=== PATIENT | female | born 1960 | race Caucasian/White ===

== ENCOUNTER 2016-07-18 13:20 | Inpatient (IN) ==
[2016-07-18] MEDS ORDERED: ASPIRIN PO STA (13:59)
[2016-07-18 14:08] LABS: MANUAL DIFF NEEDED? NO
[2016-07-18 14:13] LABS: BASO% 0.4 % (0.0-0.8); EOS# 0.17 X1000 (0.0-0.7); HEMATOCRIT 37.7 % (37.0-47.0); HEMOGLOBIN 13.5 g/dL (12.0-16.0); LYMPH# 2.61 X1000 (1.2-3.4); LYMPH% 30.9 % (20.5-51.1); MCH 30.4 PG (27-31); MCHC 35.8 g/dL (33-37); MCV 84.9 FL (81-99); MONO# 0.74 X1000 (0.11-0.59); MONO% 8.8 % (1.7-9.3); MPV 10.1 FL (7.4-10.4); NEUT% 57.9 % (42.2-75.2); PLT 247 X1000 (130-400); RBC 4.44 XMIL (4.2-5.4)
[2016-07-18 14:20] LABS: INR 0.96; PTT 24.5 Seconds (22.0-36.0)
[2016-07-18 14:33] LABS: AGAP 16; ALKALINE PHOSPHATASE 68 U/L (32-104); BUN 12 mg/dL (8-22); CHLORIDE 91 mmol/L (98-107); CK PROFILE 74 U/L (24-173); COSMO 277; GOT 25 U/L (10-30); GPT 25 U/L (10-36); MAGNESIUM 1.4 mg/dL (1.5-2.7); POTASSIUM 3.8 mmol/L (3.5-5.1); SODIUM 132 mmol/L (136-145); TCO2 25 mmol/L (25-35); TOTAL BILIRUBIN 0.53 mg/dL (0.20-1.00); TOTAL PROTEIN 7.1 g/dL (6.3-8.3)
--- NOTE | 2016-07-18 14:55 | Diag Imaging Result Document ---
PROCEDURE NAME: CHEST-2 VIEWS - 07/18/2016 CHEST, 2 VIEWS: COMPARISON: 06/18/2015. FINDINGS: Stable mild cardiomegaly. Pulmonary vascularity is normal. No focal infiltrates, pneumothorax, or pleural effusion. IMPRESSION: Mild cardiomegaly. No change from prior.
[2016-07-18] MEDS ORDERED: MAG-OX PO ONE (15:06)
[2016-07-18] MEDS ORDERED: NITROGLYCERIN SL PRN ×2 (16:21→18:37)
[2016-07-18] MEDS ORDERED: ZOFRAN IV PRN ×2 (16:25→18:37)
[2016-07-18] MEDS ORDERED: MORPHINE IV PRN (16:25)
[2016-07-18] MEDS ORDERED: PERICOLACE PO PRN (18:35)
[2016-07-18] MEDS ORDERED: SALINE LOCK IV FLUID XX ONE (18:37)
--- NOTE | 2016-07-18 20:45 | HISTORY AND PHYSICAL ---
CHIEF COMPLAINT: Chest pain. HISTORY OF PRESENT ILLNESS: The patient is a 56-year-old white female, followed by Dr. Kevin who presents to the emergency room stating that this morning she was at her yarsanism service when she had some chest discomfort in the mid left chest that radiated down the left arm. She describes it as sharp shooting pain and lasted around 5 minutes and was quite intense at 1 point, not accompanied by shortness of breath nor diaphoresis. She said she had another episode of this about 3 weeks ago. She has had 4 stents in all with her 1st heart attack occurring in 2012 requiring 2 stents and then another one in 2013 required 2 more stents. She is followed by Dr. Joshua Self, her marketing technologist in [place]. MEDICATIONS PRIOR TO ADMISSION: Naprosyn 500 mg p.o. q.12 hours p.r.n. pain. Ecotrin 325 mg p.o. daily. Coreg 12.5 mg p.o. b.i.d. Hydrochlorothiazide 25 mg p.o. q.a.m. Zestril 20 mg p.o. b.i.d. Nifedipine ER 30 mg p.o. daily. Effient 10 mg p.o. daily. Pravachol 80 mg p.o. at bedtime. Daniela-Colace 1 p.o. daily. CoQ10 100 mg p.o. daily. ALLERGIES: Penicillin. PAST MEDICAL HISTORY: 1. Coronary artery disease with history of CO 2012 requiring 2 stents, and then in January 2014 she required 2 additional stents, and July 2013. She had her last stress testing per Dr. Self in 2013 by her report. 2. Hypertension. 3. Hypercholesterolemia. Patient is not aware of being a diabetic. 4. History of tracheotomy after apparent CO, significant enough to require tracheotomy. PAST SURGICAL HISTORY: Cholecystectomy about 16 years ago. FAMILY HISTORY: Notable for coronary artery disease in her father. SOCIAL HISTORY: The patient lives in [place]. Several family members were with her today. She has a long history of smoking, but quit in late 2011, having at least a 45 pack year history of smoking. She denies any alcohol use. She is not employed. In the past, she had worked at . REVIEW OF SYSTEMS: Negative except she has had a little swelling about her right ankle recently she thinks. PHYSICAL EXAMINATION: VITAL SIGNS: Temperature 98.4 degrees, pulse 70, respirations 18, blood pressure 138/84, O2 saturation on room air 96-100%. Weight 206, 5 feet 7 inches tall. GENERAL: Obese, white female. Denies any chest pain going on currently. SKIN: Warm and dry. No rashes. HEENT: Normocephalic, atraumatic. PERRL, EOMI. Sclerae clear. Oropharynx, no redness. Edentulous. NECK: No lymphadenopathy, thyromegaly, JVD, bruits. CARDIOVASCULAR: Regular rate and rhythm without definite murmur. LUNGS: Computed tomography angiography. BACK: Nontender. Chest wall nontender. ABDOMEN: Protuberant, soft. No mass or organomegaly can be appreciated. BREASTS/PELVIC/RECTAL: Deferred. EXTREMITIES: No calf tenderness, cords or edema. Peripheral pulses lower extremities 2+ over 4. NEUROLOGIC: Cranial nerves 2-12 are intact. Nonfocal. IMAGING: Chest x-ray shows mild cardiomegaly. Otherwise, negative. LABORATORY DATA/DIAGNOSTICS: Sodium 132, potassium 3.8, chloride 91, CO2 25, BUN 12, creatinine 0.6, glucose 333, calcium 9, magnesium 1.4, total bilirubin 0.53, AST 25, ALT 25, alkaline phosphatase 68, total CK 74, troponin less than 0.01, proBNP 52. Total protein 7.1, albumin 4. PT 10. INR 0.96. PTT 24.5, D-dimer less than 0.1. White count 8.45, hemoglobin 13.5, hematocrit 37.7, MCV 85, platelets 247,000, neutrophils 58, lymphocytes 31, monocytes 8.8. EKG NSR with nonspecific anterior ST changes which are minimal. Possible old inferior and anterior scar. ASSESSMENT: 1. Chest pain, atypical. 2. History of coronary artery disease. 3. Hypertension. 4. Hypercholesterolemia. 5. Pronounced hyperglycemia with no prior history of diabetes that she is aware. 6. Hypomagnesemia. PLAN: At this time we will admit the patient to a telemetry bed and monitor serial cardiac enzymes, troponin level. This will be an observation visit. We will give her sublingual nitroglycerin p.r.n., morphine as needed for pain. Continue her home medications and get Cardiology to see the patient in the morning. Replete magnesium and check hemoglobin A1c while monitoring Accu-Cheks. cc: Chandana Weaver MD
[2016-07-18] MEDS: PRAVACHOL PO SCH (22:08)
[2016-07-18] MEDS: COREG PO SCH (22:08)
[2016-07-18] MEDS: PRINIVIL PO SCH (22:08)
[2016-07-18] MEDS: TYLENOL PO PRN (22:09)
[2016-07-18] MEDS: HUMULIN R SUBQ SCH (23:11)
[2016-07-19 04:21] LABS: HEMOGLOBIN A1C 11.2 % (4.8-6.0)
[2016-07-19] MEDS: HUMULIN R SUBQ SCH ×4 (06:47→20:07)
[2016-07-19] MEDS: PRILOSEC PO SCH (06:48)
[2016-07-19] MEDS ORDERED: ASPIRIN EC PO SCH (09:00)
--- NOTE | 2016-07-19 09:44 | PROGRESS NOTE ---
DATE: 07/19/2016 Ms. Baldwin is a 56-year-old white female who was admitted with some atypical chest pain. Her physical exam is unremarkable at the present time. Troponin levels are negative. We will get a Cardiology consult for her. cc: MD Chandana Crump MD
--- NOTE | 2016-07-19 11:38 | CONSULTATION ---
DATE OF CONSULTATION: 07/19/2016 REASON FOR CONSULT: Cardiology consulted for chest pain, angina. HISTORY OF PRESENT ILLNESS: Ms. Sharonda Baldwin is a 56-year-old lady with known history of myocardial infarction, cardiomyopathy, multiple stent placements in the past. Comes with complaints of having chest pains for the last 2 weeks. She describes her symptoms as sharp in character and pressure-like sensations which last for about 10-15 minutes on a daily basis. The symptoms got worse and she had radiation to the left arm. Describes this pain as sharp in character, associated with some shortness of breath but no significant diaphoresis. There are no palpitations. There is no dizziness or syncope. She was ruled out for myocardial infarction by cardiac enzymes. REVIEW OF SYSTEMS: GI: There is no history of nausea, vomiting, diarrhea. There is no history of hematemesis or melena. Central nervous system: No focal weakness to suggest a CVA or TIA. Genitourinary: There is no dysuria or hematuria. Respiratory: There is no history of cough, expectoration, hemoptysis. There is no history of fevers or chills. PAST MEDICAL HISTORY: 1. Myocardial infarction and ventricular fibrillation arrest in 2012. 2. Left heart catheterization 09/12/2012. Aspiration thrombectomy and overlapping bare metal stent to the proximal and mid left anterior descending artery. She had last cardiac catheterization 08/02/2013, had a drug-eluting stent placement to the proximal left anterior descending artery, requiring a PTCA of the diagonal with balloon angioplasty to maintain patency of the diagonal artery. Successful DC drug-eluting stent to the distal LAD. At that time had normal left ventricular systolic function. 3. Cardiomyopathy. 4. Hypertension. 5. Diastolic dysfunction. 6. Left ventricular hypertrophy. 7. Hyperlipidemia . 8. Diabetes. 9. Anemia. CURRENT MEDICATIONS: Aspirin, Coreg 12.5 b.i.d., coenzyme Q, hydrochlorothiazide 25, insulin, lisinopril 20 b.i.d., nifedipine therapy 30 mg daily, nitroglycerin, Effient 10, pravastatin 80. ALLERGIES: She is allergic to penicillin. SOCIAL HISTORY: She does not smoke. There is no history of alcohol abuse. PHYSICAL EXAMINATION: Vital Signs: Blood pressure 118/71. Cardiovascular System: Normal jugular venous pressure. There no thyromegaly. There is no carotid bruit. First and second heart sounds were heard. There is no S3 gallop. Respiratory System: Normal air entry. There are no crepitations or rhonchi. Abdomen: Soft, obese, nontender. There was no guarding or rigidity. Bowel sounds were heard. Central nervous system: Alert and was moving all 4 extremities. Extremities: Examination of extremities revealed no pedal edema. HEENT: Atraumatic, normocephalic. Pupils were equal and reacting to light. LABORATORY DATA: She was ruled out for myocardial infarction by cardiac enzymes. Sodium 132, potassium 3.8, BUN 12, creatinine 0.6. Magnesium 1.4. Hemoglobin 13.5, WBC 8.45, platelet count of 247,000. ASSESSMENT AND PLAN: 1. Ms. Sharonda Baldwin is a 56-year-old lady with history of diabetes, hypertension, coronary artery disease with myocardial infarction in the past with multiple stent placement to the proximal mid distal left anterior descending artery in 2012 and 2014 as above. She is admitted with ongoing episodes of chest pain for the last 2-3 weeks. She has unstable angina. Given this, I have recommended that she undergo a left heart catheterization. Risks, benefits, alternatives were explained. Patient will be set up for left heart catheterization. 2. We will get an echocardiogram to assess cardiac and valvular function. 3. She is on aspirin and Effient which has been long-term. Recommend continuing that. 4. Hypertension. Blood pressure is under control wit multiple medications. 5. Hyperlipidemia. She is on simvastatin. I have not made any changes to her medication. 6. Magnesium was 1.4, which has been repleted. We will check a BMP, CBC and magnesium level in the morning. We will plan for left heart catheterization in the morning. Thank you for the consult. We will follow hospital course. cc: MD Bebo Haskins MD
[2016-07-19] MEDS: EFFIENT PO SCH (12:28)
[2016-07-19] MEDS: COREG PO SCH ×2 (12:28→20:06)
[2016-07-19] MEDS: PRINIVIL PO SCH ×2 (12:28→20:07)
[2016-07-19] MEDS: ASPIRIN PO SCH (12:29)
[2016-07-19] MEDS: COENZYME Q10 PO SCH (12:29)
[2016-07-19] MEDS: ADALAT CC PO SCH (12:29)
[2016-07-19] MEDS: HYDROCHLOROTHIAZIDE PO SCH (12:29)
[2016-07-19] MEDS: TYLENOL PO PRN (13:46)
--- NOTE | 2016-07-19 18:23 | PROVIDER DOCUMENTATION ---
This chart was entered by Patricia Celeste Scribe, acting as scribe for Kiko Zacarias MD. HPI-Chest Pain - General Chief Complaint: Chest Pain Stated Complaint: CP Time Seen by Provider: 07/18/16 14:39 Source: patient Allergies/Adverse Reactions: Patient Allergies Allergy/AdvReac Type Severity Reaction Status Date / Time Penicillins Allergy SWELLING Verified 08/22/15 09:25 Home Medications: Home Medication List Medication Instructions Recorded Confirmed Last Taken Type Carvedilol [Coreg] 12.5 mg PO BID 12/10/12 07/18/16 07/18/16 09:00 History 12.5 MG Lisinopril [Zestril] 20 mg PO BID 12/10/12 07/18/16 07/18/16 09:00 History 20 MG PRAVAstatin [Pravachol] 80 mg PO QHS 12/10/12 07/18/16 07/18/16 09:00 History 80 MG Ubidecarenone [Co Q-10] 100 mg PO DAILY 06/25/13 07/18/16 07/18/16 09:00 History 100 MG Hydrochlorothiazide 1 tab PO QAM 09/13/13 07/18/16 07/18/16 09:00 History 1 TAB Aspirin EC 325 mg PO DAILY 03/21/15 07/18/16 07/18/16 09:00 History 325 MG Naproxen 500 mg PO Q12H PRN PRN #20 tablet 03/21/15 07/18/16 07/18/16 09:00 Rx 500 MG Nifedipine [Nifedipine ER] 30 mg PO DAILY 03/21/15 07/18/16 07/18/16 09:00 History 30 MG Prasugrel [Effient] 10 mg PO DAILY 03/21/15 07/18/16 07/18/16 09:00 History 10 MG Sennosides/Docusate Sodium [Stool 1 each PO DAILY PRN 03/21/15 07/18/16 09:00 History Softener Tablet] 1 EACH - History of Present Illness-CP Nature of Presenting Problem: Pt is 56 y/o F presents to the ED with chest pain. Pt states sharp chest pain. Pt states pain in L side of chest that radiates to L shoulder. Pt states N and denies V. Pt states CT in 2013. Pt states 4 stents placed in 2013. Pt states she is on a blood thinner. Location: reports: other (L side) Chest Pain Radiation: reports: shoulders (L) Quality of Pain: reports: sharp Severity in ED: mild Onset/Duration: this morning Timing: still present, intermittent Context/Activities at Onset: reports: light activity Modifying Factors: improves with: nothing Associated Symptoms: reports: nausea. denies: abdominal pain, back pain, diaphoresis, dizziness, edema, fatigue, fever/chills, headache, heartburn, rash , shortness of breath, swelling/lump in chest, syncope, vomiting, weakness Nitro Today/Relief: no nitro taken today Aspirin Treatment Today: 325 mg x 1, provided by ED Prior Chest Pain/Cardiac Workup: reports: stress test Similar Symptoms Previously?: Yes Recently Seen Here or By Another Healthcare Provider: No Review of Systems - Adult - REVIEW OF SYSTEMS - ADULT Constitutional: reports: no symptoms reported Eyes: reports: no symptoms reported Ears, Nose, Mouth & Throat: reports: no symptoms reported Cardiovascular: reports: chest pain. denies: heart murmur, irregular heart rate Respiratory: reports: no symptoms reported Gastrointestinal: reports: nausea. denies: abdominal pain, diarrhea, vomiting Genitourinary: reports: no symptoms reported Musculoskeletal: reports: no symptoms reported Integumentary: reports: no symptoms reported Neurological: reports: no symptoms reported Psychiatric: reports: no symptoms reported Endocrine: reports: no symptoms reported Hematologic/Lymphatic: reports: no symptoms reported Allergic/Immunologic: reports: no symptoms reported All Other Systems: Reviewed and Negative Past History - Adult - PAST MEDICAL HISTORY-ADULT Review of Records: reports: Nursing Assessment Review, Medications Reviewed, Social history reviewed & non-contributory. Major Childhood Illnesses: reports: denies history Cardiovascular: reports: CAD, HTN, hyperlipidemia, CT Respiratory: reports: asthma Gastrointestinal: reports: denies history Obstetrical/Gynecological: reports: denies history Genitourinary: reports: kidney stones Musculoskeletal: reports: denies history Neurological: reports: denies history Psychiatric: reports: denies history Endocrine/Immune: reports: denies history Other Conditions: reports: denies history - PRIOR SURGERIES/PROCEDURES Surgical/Procedure History: reports: cholecystectomy, cardiac stent, BTL, C- section - PRIOR HOSPITALIZATIONS Prior Hospitalizations: reports: none - IMMUNIZATION STATUS Childhood Immunizations: See Nurse Assessment Flu Vaccine: See Nurse Assessment - FAMILY HISTORY Family History: reviewed, not pertinent - SOCIAL HISTORY Smoking: denies Substance Use: denies Living Situation: family Physical Exam-General - PHYSICAL EXAM-ADULT Initial Vital Signs Reviewed: Yes - CONSTITUTIONAL General Appearance: appears well, alert, no apparent distress - EYES Eyes: PERRL/EOMI, pink conjunctivae - HEAD, EARS, NOSE, MOUTH & THROAT HENMT: normocephalic/atraumatic, moist mucous membranes, normal ENT inspection, TMs normal, pharynx normal - NECK Neck: non-tender, full range of motion, supple, normal inspection - RESPIRATORY Respiratory: chest non-tender, lungs clear, normal breath sounds, no pleuratic chest pain, no respiratory distress, no accessory muscle use - CARDIOVASCULAR Cardiovascular: normal peripheral pulses, regular rate, rhythm, no edema, no gallop, no JVD, no murmur - GASTROINTESTINAL (ABDOMEN) Abdominal Exam: normal bowel sounds, non tender, soft, no organomegaly, no pulsatile mass - LYMPHATIC Lymphatic: no adenopathy - MUSCULOSKELETAL Back Exam: normal inspection, no CVA tenderness, no vertebral tenderness Extremity: normal range of motion, non-tender, normal gait, normal inspection - SKIN Integumentary: normal color, normal turgor, warm/dry - NEUROLOGIC Neurologic: grossly normal - PSYCHIATRIC Psych/Mental Status: normal mood/affect, oriented x 3 Progress - PLAN OF CARE/RESULTS Progress/Plan/Lab Results: Vital Signs - 8 hr 07/18/16 13:23 07/18/16 15:08 Temperature 98.4 F Pulse Rate 69 77 Respiratory Rate 16 18 Blood Pressure 130/73 119/73 O2 Sat by Pulse Oximetry 96 96 Laboratory Results - last 24 hr 07/18/16 07/18/16 07/18/16 13:55 13:55 13:55 WBC 8.45 RBC 4.44 Hgb 13.5 Hct 37.7 MCV 84.9 MCH 30.4 MCHC 35.8 RDW Std Deviation 12.8 Plt Count 247 MPV 10.1 Neut % (Auto) 57.9 Lymph % (Auto) 30.9 Wharton % (Auto) 8.8 Eos % (Auto) 2.0 Baso % (Auto) 0.4 Neut # (Auto) 4.90 Lymph # (Auto) 2.61 Wharton # (Auto) 0.74 H Eos # (Auto) 0.17 Baso # (Auto) 0.03 PT INR PTT (Actin FS) D-Dimer < 0.10 Sodium 132 L Potassium 3.8 Chloride 91 L Carbon Dioxide 25 Anion Gap 16 BUN 12 Creatinine 0.6 Estimated GFR/1.73 m2 > 60 BUN/Creatinine Ratio 20 Glucose 333 H Calculated Osmolality 277 Calcium 9.0 Magnesium 1.4 L Total Bilirubin 0.53 AST 25 ALT 25 Alkaline Phosphatase 68 Creatine Kinase 74 Troponin T Bvm-V-Oaalljgmvkp Pept Total Protein 7.1 Albumin 4.0 Globulin 3.1 Albumin/Globulin Ratio 1.3 07/18/16 07/18/16 07/18/16 13:55 13:55 13:55 WBC RBC Hgb Hct MCV MCH MCHC RDW Std Deviation Plt Count MPV Neut % (Auto) Lymph % (Auto) Wharton % (Auto) Eos % (Auto) Baso % (Auto) Neut # (Auto) Lymph # (Auto) Wharton # (Auto) Eos # (Auto) Baso # (Auto) PT 10.0 INR 0.96 PTT (Actin FS) 24.5 D-Dimer Sodium Potassium Chloride Carbon Dioxide Anion Gap BUN Creatinine Estimated GFR/1.73 m2 BUN/Creatinine Ratio Glucose Calculated Osmolality Calcium Magnesium Total Bilirubin AST ALT Alkaline Phosphatase Creatine Kinase Troponin T < 0.010 Jls-L-Fegumwnwjtl Pept 52 Total Protein Albumin Globulin Albumin/Globulin Ratio Orders Category Date Time Status Admit - [facility] Routine AdmDCTranf 07/18/16 16:26 Ordered Activity - Bed Rest with BRP ORDERED Care 07/18/16 16:25 Active Call Admitting on Arrival AT ADMISSION Care 07/18/16 16:28 Active Cardiac Monitoring DIRECTED Care 07/18/16 13:59 Active Neurological Check ORDERED Care 07/18/16 16:25 Active Resuscitation Status Routine Care 07/18/16 16:25 Ordered Saline Loc NOW Care 07/18/16 13:59 Active Vital Signs Order ARRIVAL TO ROOM Care 07/18/16 16:25 Active Diabetic Diet Diet 07/18/16 18:00 Active CHEST-2 VIEWS [RAD] Stat Exams 07/18/16 13:59 Completed CBC WITH ELECTRONIC DIFF [HEME] Stat Lab 07/18/16 13:55 Completed CK PROFILE [SP CHEM] Stat Lab 07/18/16 13:55 Completed COMPREHENSIVE METABOLIC PANEL [CHEM] Stat Lab 07/18/16 13:55 Completed D-DIMER [CHEM] Stat Lab 07/18/16 13:55 Completed MAGNESIUM [CHEM] Stat Lab 07/18/16 13:55 Completed PRO B-NATRIURETIC PEPTIDE Stat Lab 07/18/16 13:55 Completed PROTIME WITH INR [COAG] Stat Lab 07/18/16 13:55 Completed PTT [COAG] Stat Lab 07/18/16 13:55 Completed TROPONIN T Stat Lab 07/18/16 13:55 Completed Aspirin Med 07/18/16 13:59 Discontinued 325 mg PO STAT STA Magnesium Oxide [Mag-Ox] Med 07/18/16 15:06 Discontinued 400 mg PO NOW ONE Morphine Med 07/18/16 16:25 Active 2 mg IV Q2H PRN PRN Nitroglycerin Sl [Nitroglycerin] Med 07/18/16 16:21 Active 0.4 mg SL Q5M PRN PRN Ondansetron [Zofran] Med 07/18/16 16:25 Active 4 mg IV Q4H PRN PRN EKG [EKG] Stat Ther 07/18/16 13:23 Ordered EKG [EKG] Stat Ther 07/18/16 13:59 Ordered Transfer/Admit Order [TRANSFER] Routine Transfer 07/18/16 17:36 Ordered Result Diagrams: 07/18/16 13:55 07/18/16 13:55 - EKG 1 Time of EKG reading by physician:: 13:27 EKG Read and Signed by:: Collin Amos EKG Interpretation (*Must complete 3 of following elements*): Abnormal Rate: 68 Rhythm: unusual P axis, possible ectopic atrial rhythm Comments: ST wave changes - XRAY 1 XRAY: Bilateral XRAY Study: Chest Impression: Abnormal XRAY Interpretation: mild cardiomegaly. no changes from prior. - CONSULTS/PCP/HOSPITALIST Notification #1 *Consult/PCP/Hospitalist*: Dr. Weaver Time Discussed: 16:17 (Dr. Weaver accepted admit ) Reason/Comments: Dr. Zacarias consulted with Dr. Weaver about admit of PT Consult Disposition: Admit Departure - Departure Time of Disposition Decision: 16:18 DIAGNOSIS: Chest pain, HTN (hypertension), Diabetes Disposition: ADMITTED INPATIENT 09 Certified Medical Emergency: Emergent Condition: Stable This chart was documented by the indicated scribe, (Patricia Celeste, Devin) and accurately reflects the services I performed and decisions made by me, Kiko Zacarias MD, as attested by the provider's signature.
[2016-07-19] MEDS: PRAVACHOL PO SCH (20:06)
--- NOTE | 2016-07-19 21:27 | ECHO REPORT ---
ORDER DATE: 07/19/2016 MEASUREMENTS: Left ventricular end-diastolic diameter 4.5, end-systolic diameter 3.9, posterior wall thickness 1.1, septal thickness 1.5, left atrium 3.9, aortic root 3.5. SUMMARY: 1. Fair quality study. 2. Aortic, mitral, tricuspid and pulmonic valves are without evidence of structural abnormality. There is trace mitral regurgitation. The aortic root is normal size. 3. Normal left ventricular chamber size with mild concentric left hypertrophy is demonstrated. Estimated left ejection fraction is 65-70%. No regional wall motion abnormalities are evident. Doppler suggests grade 1 left ventricular diastolic dysfunction due to impaired relaxation. Left atrium is mildly enlarged. Right atrium and right ventricle are of normal size with grossly preserved right ventricular systolic performance. 4. No pericardial effusion. 5. Appearance of inferior vena cava suggests normal central venous pressure. CONCLUSIONS: 1. No significant valvular abnormality. 2. Mild concentric left hypertrophy with estimated left ejection fraction 65-70%. 3. Grade 1 left ventricular diastolic dysfunction. 4. Mild left atrial enlargement. cc: MD Amanda Herron PA Amit V. Vora, MD
[2016-07-20] MEDS ORDERED: RESTORIL PO PRN (03:35)
[2016-07-20] MEDS ORDERED: PERCOCET-5 PO PRN (03:35)
[2016-07-20] MEDS ORDERED: MAGNESIUM SULFATE 3 GM in NS 100 ML IV PRN (03:35)
[2016-07-20] MEDS ORDERED: MAGNESIUM SULFATE 2 GM in STERILE WATER INJ. 50 ML IV PRN ×4 (03:35)
[2016-07-20] MEDS ORDERED: MILK OF MAGNESIA PO PRN (03:35)
[2016-07-20] MEDS ORDERED: CEPACOL SORE THROAT LOZENGE MT PRN (03:35)
[2016-07-20] MEDS ORDERED: DULCOLAX PR PRN (03:35)
[2016-07-20] MEDS ORDERED: XANAX PO PRN (03:35)
[2016-07-20] MEDS ORDERED: KLOR-CON PO PRN ×3 (03:35)
[2016-07-20] MEDS: HUMULIN R SUBQ SCH ×4 (06:20→21:18)
[2016-07-20] MEDS: PRILOSEC PO SCH (06:22)
--- NOTE | 2016-07-20 06:35 | EKG Report ---
Test Performed on : 07/20/2016 06:06:16 AM Test Reason : pre left heart cath Blood Pressure : / mmHG Vent. Rate : 067 BPM Atrial Rate : 067 BPM P-R Int : 210 ms QRS Dur : 102 ms QT Int : 438 ms P-R-T Axes : 012 020 026 degrees QTc Int : 462 ms Sinus rhythm. with 1st degree AV block. Cannot rule out Anterior infarct , age undetermined Abnormal ECG When compared with ECG of 18-JUL-2016 17:27, (Unconfirmed) No significant change was found Confirmed by Carmen PEREZ, Efrain Ernst ([id number]) on 07/20/2016 8:37:52 PM
[2016-07-20 06:37] LABS: HEMATOCRIT 43.9 % (37.0-47.0); HEMOGLOBIN 15.5 g/dL (12.0-16.0); MCH 30.3 PG (27-31); MCHC 35.3 g/dL (33-37); MCV 85.9 FL (81-99); MPV 10.1 FL (7.4-10.4); RBC 5.11 XMIL (4.2-5.4)
[2016-07-20 07:06] LABS: INR 0.99; PROTIME 10.4 Seconds (9.2-11.7)
[2016-07-20 07:15] LABS: AGAP 18; BUN 16 mg/dL (8-22); CALCIUM 9.6 mg/dL (8.8-10.2); CHLORIDE 92 mmol/L (98-107); COSMO 280; MAGNESIUM 1.6 mg/dL (1.5-2.7); SODIUM 133 mmol/L (136-145); TCO2 23 mmol/L (25-35)
[2016-07-20] MEDS: PRINIVIL PO SCH ×2 (09:03→21:17)
[2016-07-20] MEDS: EFFIENT PO SCH ×2 (09:03→09:06)
[2016-07-20] MEDS: ASPIRIN PO SCH (09:03)
[2016-07-20] MEDS: COENZYME Q10 PO SCH (09:03)
[2016-07-20] MEDS: HYDROCHLOROTHIAZIDE PO SCH (09:03)
[2016-07-20] MEDS: COREG PO SCH ×2 (09:03→21:17)
[2016-07-20] MEDS: ADALAT CC PO SCH (09:03)
--- NOTE | 2016-07-20 09:38 | PROGRESS NOTE ---
DATE: 07/20/2016 SUBJECTIVE: Ms. Baldwin is doing better. She does not have any chest pain. Echo and chest x- ray shows cardiomegaly with left ventricular hypertrophy. No other significant finding is noted. We will continue to watch her and see if there are any recommendations from physician office rep. Otherwise we will probably discharge her tomorrow. -2 cc: Bebo Kevin MD
[2016-07-20] MEDS ORDERED: HEPARIN 1000 UNITS/NS 2,000 UNIT/1,000 ML IV.SOLN ONE (09:59)
[2016-07-20] MEDS ORDERED: VERSED ONE (10:59)
[2016-07-20] MEDS ORDERED: DEMEROL ONE (10:59)
[2016-07-20] MEDS ORDERED: CLAVE PUMP SET NO FILTER 12260 ONE (11:01)
[2016-07-20] MEDS ORDERED: CLAVE TWINSITE 32 IN 11959 ONE (11:01)
[2016-07-20] MEDS ORDERED: NS 1,000 ML ONE (11:01)
[2016-07-20] MEDS ORDERED: NS 250 ML ONE (11:14)
--- NOTE | 2016-07-20 12:38 | CARDIAC CATH REPORT ---
DATE: 07/20/2016 PROCEDURES PERFORMED: 1. Right heart catheterization. 2. Left heart catheterization. 3. Selective coronary angiogram. 4. Left ventriculogram. HISTORY OF PRESENT ILLNESS: This is a 56-year-old female with previous to LAD, presenting with increasing chest pains. Dr. Kaufman saw her in consultation and recommended a right and left heart catheterization for better evaluation of the patient's symptoms. The benefits, risks and complications were explained to her in detail. She understood and requested to proceed. DESCRIPTION OF PROCEDURE: The patient was brought to the cardiac dental lab technician and received 1 mg of Versed and 25 mg of Demerol for sedation. The right groin was infiltrated with lidocaine 1%. Initially the 6-Moroccan sheath was inserted into right femoral artery following modified Seldinger technique. The coronary artery was opacified with 6-Moroccan left Jacob 4 and right Jacob 4, 6- Moroccan catheters. Thereafter, using the right Jacob catheter, the aortic valve was negotiated. Left ventriculogram was performed in the 60 degree IVETTE projection and 30 degree BUENROSTRO projection by hand injection. Thereafter, this catheter was removed, the sheath was flushed. Thereafter, we accessed the right femoral vein using a 6-Moroccan sheath following the modified Seldinger technique. Thereafter, using the Virgin-Mark catheter, pressure was measured at the level of the pulmonary artery, pulmonary capillary wedge. Serial cardiac output was performed by thermodilution method. A sample of blood was drawn from the pulmonary artery and the femoral artery for Nella cardiac output determination. Thereafter, the catheter was pulled back from the pulmonary artery into right ventricle and right atrium. Pressures were measured at each level, and eventually the catheter was removed. The sheath was flushed. Right femoral artery was opacified. The puncture had been made just at the bifurcation of the common femoral artery, and therefore we chose to remove the sheath manually. Hemostasis was accomplished by hand compression at the arterial site and then also at the venous site. The patient tolerated the procedure well without any obvious complication. The patient was taken back to her room in stable condition. SUMMARY OF HEMODYNAMIC FINDINGS: Central aortic pressure was 106/64, mean 82 mm Hg. Left ventricular pressure was 89/8 mm Hg, post LV gram 89/10 mm Hg. Final central aortic pressure was 97/60 mm Hg, mean 77 mm Hg. The patient received nitroglycerin during the procedure. Right-sided pressure: Right atrium mean= 7 mm Hg. Right ventricular pressure is 30/11 mm Hg. Pulmonary pressure 33/5 mm Hg with a mean of 11 mm Hg. Pulmonary capillary wedge pressure initially was 18 mm Hg and thereafter was 13 mm Hg. The pulmonary artery saturation was 73%. Femoral artery saturation was 99%. Cardiac output by Nella method is 5.17 L/Min, by thermodilution is 3.4 L/min. Index by thermodilution is 1.6 L/min/m2. This is a low cardiac output. CONCLUSIONS: In summary, these hemodynamics indicate normal/low filling pressures for left and right ventricle and no evidence of pulmonary hypertension. The cardiac output is low. SUMMARY OF ANGIOGRAPHIC FINDINGS: 1. Left main coronary artery. This vessel appears to be anatomically normal, divides into LAD and circumflex. 2. Left anterior descending coronary artery. This vessel shows the presence of a stent proximally and gives rise to a good size first diagonal branch that shows no more than 30% to 40% plaque proximally. It gives rise to a large septal branch. Immediately thereafter , there is a second stent that is patent prior to the origin of the terminal diagonal branch. The LAD distally is a small vessel and reaches the apex of the left ventricle. No critical lesions noted. 3. Circumflex. The circumflex system is a relatively good size, nondominant system. It gives rise to 2 proximal tiny lateral branches. Thereafter, it gives rise to an obtuse marginal vessel that is patent and free of any obvious obstruction. More distally, the circumflex terminates as a multibranching posterolateral system with 3 or 4 very small vessels. 4. Right coronary artery. The right coronary artery appears to be free of any critical obstruction. The vessel is dominant in distribution. It gives rise to right ventricular branches, a conus branch. There is mild plaque in the distal portion of the vessel and then gives rise to a very good size posterior descending system which is free of any critical obstruction. There is a small AV branch taking off the right coronary artery. No critical lesions noted there. LEFT VENTRICULOGRAM: The left ventricle is hyperdynamic, small chamber. Ejection fraction is probably in the order of 75% to 80%. No mitral regurgitation is noted. OPACIFICATION OF RIGHT FEMORAL ARTERY: The right femoral artery is free of any obstruction. FLUOROSCOPY: Fluoroscopy reveals the presence of stents in the LAD. CONCLUSIONS: 1. Normal pulmonary pressure/normal wedge/normal LVEDP. 2. Normal left main coronary artery and circumflex system. 3. Patent stents within the left anterior descending coronary artery. 4. Very mild plaquing in the right coronary artery. 5. Hyperdynamic left ventricle. Ejection fraction is 75% to 80%. No mitral regurgitation. No aortic stenosis. RECOMMENDATIONS: The patient is to be treated medically. No other immediate intervention from cardiology. cc: MD Bebo Gaviria MD [facility]
[2016-07-20] MEDS: PRAVACHOL PO SCH (21:17)
--- NOTE | 2016-07-21 05:25 | EKG Report ---
Test Performed on : 07/20/2016 5:12:15 PM Test Reason : post cath Blood Pressure : / mmHG Vent. Rate : 068 BPM Atrial Rate : 068 BPM P-R Int : 212 ms QRS Dur : 104 ms QT Int : 410 ms P-R-T Axes : 025 026 042 degrees QTc Int : 435 ms Sinus rhythm. with 1st degree AV block. Cannot rule out Anterior infarct (cited on or before 20-JUL-2016) Abnormal ECG When compared with ECG of 20-JUL-2016 06:06, No significant change was found Confirmed by Carmen PEREZ, Efrain Ernst ([id number]) on 07/23/2016 9:19:15 PM
[2016-07-21 05:29] LABS: MAGNESIUM 1.6 mg/dL (1.5-2.7)
[2016-07-21] MEDS: HUMULIN R SUBQ SCH ×2 (06:24→12:00)
[2016-07-21] MEDS: PRILOSEC PO SCH (06:25)
--- NOTE | 2016-07-21 08:43 | PROGRESS NOTE ---
DATE: 07/21/2016 Ms. Baldwin is doing fairly well. She does not have any chest pain. Her lungs are clear. She had a normal catheterization study yesterday. Her blood sugar is out of control. We have consulted the dietitian. She will be going home if she is cleared by supervisor sewer system today. cc: Bebo Kevin MD
[2016-07-21] MEDS: HYDROCHLOROTHIAZIDE PO SCH (10:06)
[2016-07-21] MEDS: PRINIVIL PO SCH (10:06)
[2016-07-21] MEDS: COREG PO SCH (10:06)
[2016-07-21] MEDS: COENZYME Q10 PO SCH (10:06)
[2016-07-21] MEDS: ASPIRIN PO SCH (10:06)
[2016-07-21 11:51] VITALS: BP 120/75
[2016-07-21] MEDS: EFFIENT PO SCH (12:11)
[2016-07-21] MEDS: ADALAT CC PO SCH (12:11)
--- NOTE | 2016-07-22 09:18 | DISCHARGE SUMMARY ---
ADMISSION DATE: 07/18/2016 DISCHARGE DATE: 07/21/2016 HISTORY AND HOSPITAL COURSE: Ms. Baldwin is a 56-year-old white female who was admitted with chest pain. In the hospital, the chest x-ray revealed mild cardiomegaly, otherwise it was unremarkable. Her EKG revealed sinus rhythm, first-degree AV block. Could not rule out anterior infarct. The age probably was undetermined from the EKG. Cardiac catheterization was performed. It was done by Dr. Mcdonnell, and it revealed normal pulmonary wedge pressure, normal left main coronary artery and circumflex artery. The patient's stents are within left anterior descending artery. Very mild plaquing in the right coronary artery. In the hospital, CBC was unremarkable. INR was 0.99. D-dimer was less than 0.1. Blood sugars were somewhat elevated. Electrolytes are normal. BUN and creatinine were also normal. Initial blood sugar was 333. The patient has serially not been followed by me. However, she has not been sticking to the diet. Will give her good dietary education with a test rider. She is going to come to the office in about 7 days, and we probably will restart some diabetic medications like metformin or other oral agents. Her arteriogram was negative. IMPRESSION: Angina pectoris. PLAN: She will be discharged today. No new prescriptions were given. cc: Bebo Kevin MD
== END 2016-07-21 15:45 | disposition home or self-care (01) ==
LOC: ED 13:20 → 4N 17:53 → 3S 07-20 12:34
PROVIDERS: ADMIT Internal Medicine; ATTEND Internal Medicine

== ENCOUNTER 2018-08-10 20:16 | Inpatient (IN) ==
[2018-08-10] MEDS ORDERED: ASPIRIN PO ONE (20:34)
[2018-08-10] MEDS ORDERED: ASPIRIN ONE (20:35)
[2018-08-10 21:02] LABS: BASO# 0.03 X1000 (0.0-0.2); BASO% 0.4 % (0.0-0.8); EOS# 0.11 X1000 (0.0-0.7); EOS% 1.5 % (0.0-10.0); HEMATOCRIT 40.4 % (37.0-47.0); HEMOGLOBIN 14.6 g/dL (12.0-16.0); IMM GRAN# 0.02 X1000 (0.0-0.04); IMM GRAN% 0.3 % (0.0-0.5); LYMPH# 2.57 X1000 (1.2-3.4); LYMPH% 35.4 % (20.5-51.1); MCH 29.7 PG (27-31); MCHC 36.1 g/dL (33-37); MCV 82.3 FL (81-99); MONO# 0.56 X1000 (0.11-0.59); MONO% 7.7 % (1.7-9.3); MPV 9.9 FL (7.4-10.4); NEUT# 3.97 X1000 (1.4-6.5); NEUT% 54.7 % (42.2-75.2); PLT 250 X1000 (130-400); RBC 4.91 XMIL (4.2-5.4); RDW 12.9 % (11.5-14.5); WBC 7.26 X1000 (4.8-10.8)
[2018-08-10 21:11] LABS: INR 0.85; PROTIME 12.3 Seconds (11.0-16.0)
--- NOTE | 2018-08-10 21:30 | Diag Imaging Result Doc PS360 ---
CHEST-2 VIEWS - 08/10/2018 INDICATION: chest COMPARISON: 01/23/2017 FINDINGS: Stable cardiomegaly. There are some stable faint infiltrate or atelectasis at the right lower lobe. Otherwise no substantial infiltrates. No pneumothorax or pleural effusion. IMPRESSION: Cardiomegaly. Faint nonspecific infiltrate or atelectasis at the right lower lobe. Electronically signed by Rogerio Roman 08/10/2018 9:27 PM
[2018-08-10 21:32] LABS: AGAP 16; ALB/GLOB RATIO 1.6; ALBUMIN 4.3 g/dL (3.5-5.0); ALKALINE PHOSPHATASE 88 U/L (32-104); BUN 17 mg/dL (8-22); CALCIUM 9.3 mg/dL (8.8-10.2); CHLORIDE 98 mmol/L (98-107); CK PROFILE 58 U/L (24-173); COSMO 289; CREATININE 0.6 mg/dL (0.5-0.9); ESTIMATED GFR > 60; GLUCOSE 283 mg/dL (70-104); GOT 16 U/L (10-30); GPT 22 U/L (10-36); POTASSIUM 3.6 mmol/L (3.5-5.1); SODIUM 139 mmol/L (136-145); TCO2 25 mmol/L (25-35); TOTAL BILIRUBIN 0.34 mg/dL (0.20-1.00)
[2018-08-10] MEDS ORDERED: MORPHINE IV ONE (22:23)
--- NOTE | 2018-08-11 00:08 | PROVIDER DOCUMENTATION ---
This chart was entered by Shaylee Russell Scribe, acting as scribe for Mc Hawley MD. HPI-Chest Pain - General Chief Complaint: Chest Pain Stated Complaint: MID-CHEST PAIN, COUGH, SHARP PAIN Time Seen by Provider: 08/10/18 22:10 Source: patient Allergies/Adverse Reactions: Patient Allergies Allergy/AdvReac Type Severity Reaction Status Date / Time Penicillins Allergy SWELLING Verified 11/25/17 17:57 Home Medications: Home Medication List Medication Instructions Recorded Confirmed Last Taken Type Carvedilol [Coreg] 12.5 mg PO BID 12/10/12 04/11/17 07/18/16 09:00 History 12.5 MG Lisinopril [Zestril] 20 mg PO BID 12/10/12 04/11/17 07/18/16 09:00 History 20 MG PRAVAstatin [Pravachol] 80 mg PO QHS 12/10/12 04/11/17 07/18/16 09:00 History 80 MG Ubidecarenone [Co Q-10] 100 mg PO DAILY 06/25/13 04/11/17 07/18/16 09:00 History 100 MG Hydrochlorothiazide 1 tab PO QAM 09/13/13 04/11/17 07/18/16 09:00 History 1 TAB Aspirin EC 325 mg PO DAILY 03/21/15 04/11/17 07/18/16 09:00 History 325 MG Naproxen 500 mg PO Q12H PRN PRN #20 tablet 03/21/15 04/11/17 07/18/16 09:00 Rx 500 MG Nifedipine [Nifedipine ER] 30 mg PO DAILY 03/21/15 04/11/17 07/18/16 09:00 History 30 MG Prasugrel [Effient] 10 mg PO DAILY 03/21/15 04/11/17 07/18/16 09:00 History 10 MG Sennosides/Docusate Sodium [Stool 1 each PO DAILY PRN 03/21/15 04/11/17 07/18/16 09:00 History Softener Tablet] 1 EACH Hyoscyamine Subl [Levsin-Sl] 0.125 mg SL TID #10 tablet 01/23/17 04/11/17 Unknown Rx Acetaminophen with Codeine 1 ea PO Q6H PRN PRN #14 tab 02/25/17 04/11/17 Unknown Rx [Tylenol with Codeine #3 Tablet] Dicyclomine [Bentyl] 10 mg PO 4XDAY PRN #20 cap 04/11/17 Unknown Rx Ondansetron Odt [Zofran 8Mg Odt] 8 mg PO Q8H PRN PRN #20 tab 04/11/17 Unknown Rx Acyclovir 800 mg PO 4XDAY #28 tab 06/23/17 Unknown Rx Hydrocodone/Acetaminophen [Warren 1 ea PO Q4-6H PRN PRN #20 tab 06/23/17 Unknown Rx 5-325 Tablet] Ibuprofen [Motrin] 800 mg PO Q8H PRN PRN #30 tab 06/23/17 Unknown Rx Clindamycin [Cleocin] 150 mg PO Q6HR #30 cap 07/09/17 Unknown Rx Hydrocodone/Acetaminophen [Warren 1 ea PO Q4-6H PRN PRN #20 tab 10/01/17 Unknown Rx 5-325 Tablet] Ibuprofen [Motrin] 800 mg PO Q8H PRN PRN #30 tab 10/01/17 Unknown Rx Azithromycin [Zithromax Z-Sergey] 250 mg PO DIRECTED #1 pkg 11/25/17 Unknown Rx - History of Present Illness-CP Nature of Presenting Problem: pt is a 58 yr old female presenting with left chest pain, stabbing in nature, currently 3/10, pt reports pain was 10/10, pain onset apporx 1900. pt reports over last 2 months she has had brief(5min) episodes of mild chest pain, pain resolves on its on, tonight pt reports pain was much worse than previously and has lasted longer. pt also admits brief diaphoresis and shortness of breath. Location: reports: other (left) Chest Pain Radiation: reports: no radiation Quality of Pain: reports: stabbing Severity in ED: mild (3/10) Onset/Duration: 1-3 hours ago Timing: improving Context/Activities at Onset: reports: light activity Modifying Factors: improves with: nothing Associated Symptoms: reports: diaphoresis, shortness of breath. denies: fever/chills, nausea Nitro Today/Relief: no nitro taken today Aspirin Treatment Today: 325 mg x 1, provided by ED Prior Chest Pain/Cardiac Workup: reports: other (cardiac stents x 4, last placed in 2013). denies: no prior cardiac workup (approx 5yrs since last workup) Similar Symptoms Previously?: Yes Recently Seen Here or By Another Healthcare Provider: No Review of Systems - Adult - REVIEW OF SYSTEMS - ADULT Constitutional: reports: no symptoms reported Eyes: denies: blurred vision, double vision Ears, Nose, Mouth & Throat: reports: no symptoms reported Cardiovascular: reports: chest pain. denies: palpitations, syncope Respiratory: reports: shortness of breath. denies: cough Gastrointestinal: denies: abdominal pain, nausea, vomiting Genitourinary: denies: dysuria, frequency Musculoskeletal: denies: back pain, muscle aches, neck pain Integumentary: reports: no symptoms reported Neurological: denies: dizziness/vertigo, headache/migraines Psychiatric: reports: no symptoms reported Endocrine: reports: no symptoms reported Hematologic/Lymphatic: reports: no symptoms reported Allergic/Immunologic: reports: no symptoms reported All Other Systems: Reviewed and Negative Past History - Adult - PAST MEDICAL HISTORY-ADULT Review of Records: reports: Old Records Reviewed, Nursing Assessment Review, Medications Reviewed, Social history reviewed & non-contributory. Major Childhood Illnesses: reports: denies history Cardiovascular: reports: CAD, HTN, hyperlipidemia, [place] Respiratory: reports: asthma Gastrointestinal: reports: denies history Obstetrical/Gynecological: reports: denies history Genitourinary: reports: kidney stones Musculoskeletal: reports: denies history Neurological: reports: denies history Psychiatric: reports: denies history Endocrine/Immune: reports: Diabetes Other Conditions: reports: denies history - PRIOR SURGERIES/PROCEDURES Surgical/Procedure History: reports: cholecystectomy, cardiac stent, BTL, C- section - PRIOR HOSPITALIZATIONS Prior Hospitalizations: reports: none - IMMUNIZATION STATUS Childhood Immunizations: See Nurse Assessment Flu Vaccine: See Nurse Assessment - FAMILY HISTORY Family History: reviewed, not pertinent - SOCIAL HISTORY Smoking: quit greater than 1 year Substance Use: denies Living Situation: family Physical Exam-General - PHYSICAL EXAM-ADULT Initial Vital Signs Reviewed: Yes - CONSTITUTIONAL General Appearance: appears well, alert, no apparent distress - EYES Eyes: PERRL/EOMI - HEAD, EARS, NOSE, MOUTH & THROAT HENMT: normocephalic/atraumatic, moist mucous membranes, normal ENT inspection - NECK Neck: non-tender, full range of motion, supple, normal inspection - RESPIRATORY Respiratory: chest non-tender, lungs clear, normal breath sounds, no pleuratic chest pain, no respiratory distress, no accessory muscle use - CARDIOVASCULAR Cardiovascular: normal peripheral pulses, regular rate, rhythm, no edema - GASTROINTESTINAL (ABDOMEN) Abdominal Exam: normal bowel sounds, non tender, soft - LYMPHATIC Lymphatic: no adenopathy - MUSCULOSKELETAL Back Exam: normal inspection, no CVA tenderness, no vertebral tenderness Extremity: normal range of motion, non-tender, normal gait, normal inspection - SKIN Integumentary: normal color, normal turgor, warm/dry - NEUROLOGIC Neurologic: grossly normal, no motor/sensory deficits - PSYCHIATRIC Psych/Mental Status: normal mood/affect Progress - PLAN OF CARE/RESULTS Progress/Plan/Lab Results: Vital Signs - 8 hr 08/10/18 20:32 08/10/18 21:48 08/10/18 21:51 Temperature 98.9 F Pulse Rate 76 Respiratory Rate 14 Blood Pressure 186/105 O2 Sat by Pulse Oximetry 96 97 97 08/10/18 21:58 08/10/18 22:03 08/10/18 22:10 Temperature Pulse Rate 78 82 85 Respiratory Rate 16 16 15 Blood Pressure 182/111 170/117 O2 Sat by Pulse Oximetry 97 97 99 08/10/18 22:20 Temperature Pulse Rate 85 Respiratory Rate 18 Blood Pressure O2 Sat by Pulse Oximetry 98 Laboratory Results - last 24 hr 08/10/18 08/10/18 08/10/18 20:40 20:40 20:40 WBC 7.26 RBC 4.91 Hgb 14.6 Hct 40.4 MCV 82.3 MCH 29.7 MCHC 36.1 RDW Std Deviation 12.9 Plt Count 250 MPV 9.9 Immature Gran % (Auto) 0.3 Neut % (Auto) 54.7 Lymph % (Auto) 35.4 Haywood % (Auto) 7.7 Eos % (Auto) 1.5 Baso % (Auto) 0.4 Immature Gran # (Auto) 0.02 Neut # (Auto) 3.97 Lymph # (Auto) 2.57 Haywood # (Auto) 0.56 Eos # (Auto) 0.11 Baso # (Auto) 0.03 PT INR PTT (Actin FS) Sodium 139 Potassium 3.6 Chloride 98 Carbon Dioxide 25 Anion Gap 16 BUN 17 Creatinine 0.6 Estimated GFR/1.73 m2 > 60 BUN/Creatinine Ratio 28 Glucose 283 H Calculated Osmolality 289 Calcium 9.3 Total Bilirubin 0.34 AST 16 ALT 22 Alkaline Phosphatase 88 Creatine Kinase 58 Troponin T Nti-[id number]-Zviehozlxrx Pept 223 Total Protein 7.0 Albumin 4.3 Globulin 2.7 Albumin/Globulin Ratio 1.6 08/10/18 08/10/18 20:40 20:40 WBC RBC Hgb Hct MCV MCH MCHC RDW Std Deviation Plt Count MPV Immature Gran % (Auto) Neut % (Auto) Lymph % (Auto) Haywood % (Auto) Eos % (Auto) Baso % (Auto) Immature Gran # (Auto) Neut # (Auto) Lymph # (Auto) Haywood # (Auto) Eos # (Auto) Baso # (Auto) PT 12.3 INR 0.85 PTT (Actin FS) 26.0 Sodium Potassium Chloride Carbon Dioxide Anion Gap BUN Creatinine Estimated GFR/1.73 m2 BUN/Creatinine Ratio Glucose Calculated Osmolality Calcium Total Bilirubin AST ALT Alkaline Phosphatase Creatine Kinase Troponin T < 0.010 Jrx-[id number]-[id number] Pept Total Protein Albumin Globulin Albumin/Globulin Ratio Orders Category Date Time Status Cardiac Monitoring DIRECTED Care 08/10/18 20:34 Active Oxygen Therapy- ED Nursing DIRECTED Care 08/10/18 20:34 Active Saline Loc NOW Care 08/10/18 20:34 Active CHEST-2 VIEWS [RAD] Stat Exams 08/10/18 20:34 Completed CBC WITH ELECTRONIC DIFF [HEME] Stat Lab 08/10/18 20:40 Completed CK PROFILE [SP CHEM] Stat Lab 08/10/18 20:40 Completed COMPREHENSIVE METABOLIC PANEL [CHEM] Stat Lab 08/10/18 20:40 Completed PRO B-NATRIURETIC PEPTIDE Stat Lab 08/10/18 20:40 Completed PROTIME WITH INR [COAG] Stat Lab 08/10/18 20:40 Completed PTT [COAG] Stat Lab 08/10/18 20:40 Completed TROPONIN T Stat Lab 08/10/18 20:40 Completed Aspirin Med 08/10/18 20:35 Discontinued 325 mg .ROUTE .STK-MED ONE Aspirin Med 08/10/18 20:34 Discontinued 325 mg PO NOW ONE Morphine Med 08/10/18 22:23 Discontinued 4 mg IV NOW ONE CP/SOB/Palp >45 yrs of Age Stat Oth 08/10/18 20:34 Ordered EKG [EKG] Stat Ther 08/10/18 20:34 Ordered Result Diagrams: 08/10/18 20:40 08/10/18 20:40 - XRAY 1 XRAY Study: Chest Impression: Abnormal (Signed CHEST-2 VIEWS - 08/10/2018 INDICATION: chest COMPARISON: 01/23/2017 FINDINGS: Stable cardiomegaly. There are some stable faint infiltrate or atelectasis at the right lower lobe. Otherwise no substantial infiltrates. No pneumothorax or pleural effusion. IMPRESSION: Cardiomegaly. Faint nonspecific infiltrate or atelectasis at the right lower lobe. Electronically signed by Rogerio Roman 08/10/2018 9:27 PM 08/10/182126 Interpreting Physician: Rogerio Roman MD Dictated Date/Time: 08/10/182125 cc: Mc Hawley MD; None,PCP) Comparison with other Films: changes noted (01/23/17) Departure - Departure Date of Disposition Decision: 08/11/18 Time of Disposition Decision: 00:08 DIAGNOSIS: Chest pain Qualifiers: Chest pain type: other chest pain Qualified Code(s): R07.89 - Other chest pain; R07.8 - Other chest pain Disposition: ADMITTED INPATIENT 09 Certified Medical Emergency: Emergent Condition: Stable Referrals and Follow-Ups: None,PCP [Primary Care Provider] - - Critical Care Note This patient required my direct & personal management of CC.: No Attestation - Physician/ JERAD Attestation Patient care was provided by Advanced Practice Provider:: No The physician spent face to face time with patient:: Yes Advanced Practice Provider documentation review:: Supervising physician onsite and consulted in the evaluation and care of this patient. The physician did have a face to face encounter with the patient. This chart was documented by the indicated scribe, (Shaylee Russell Scribe) and accurately reflects the services I performed and decisions made by me, Mc Hawley MD, as attested by the provider's signature.
[2018-08-11] MEDS ORDERED: PRAVACHOL PO SCH (01:00)
[2018-08-11 01:42] LABS: HEMOGLOBIN A1C 8.6 % (4.8-6.0)
--- NOTE | 2018-08-11 03:36 | HISTORY AND PHYSICAL ---
PRIMARY CARE PHYSICIAN: None. HISTORY OF PRESENT ILLNESS: This is a 58-year-old female with past medical history of coronary artery disease with prior HI, who presented to the emergency department today because of chest pain that was located in the left side of the chest. It was sharp and dull in nature, and it lasted approximately 30 minutes. No nausea or vomiting associated. That pain started when she was talking with her daughter. No diaphoresis noted. The patient has not been seen by any primary care doctor in at least 3 years. The patient used to see Dr. Kevin as a primary care doctor, but because of financial issues, she is not seeing him anymore. Also, she reports that she has not been seen by any green end man in at least 3 years ago. She used to have follow with Dr. Joshua Self in [place] and Dr. Shae sam in [place]. PAST MEDICAL HISTORY: 1. Coronary artery disease with history of HI in 2012, and she required 2 stents to be placed; also in January 2014 she required 2 additional stents as well. 2. Hypertension. 3. Diabetes mellitus type 2. 4. Hypercholesterolemia. 5. History of tracheostomy after HI. PAST SURGICAL HISTORY: 1. . 2. Cholecystectomy about almost 20 years ago. FAMILY HISTORY: Positive for mom and dad with diabetes and hypertension. Coronary artery disease in father as well. SOCIAL HISTORY: Patient lives with in [place]. She denies drinking alcohol. She quit smoking 2011. She denies using any illicit drugs. ALLERGIES: The patient is allergic to penicillin. REVIEW OF SYSTEMS: Eleven systems were reviewed and all systems are related to H and P. PHYSICAL EXAMINATION: VITAL SIGNS: Temperature 98.5 degrees, heart rate 76, respiratory rate 14, blood pressure 186/105, O2 saturation 100% on room air. GENERAL: This is a chronically ill appearing, 58-year-old female lying in bed, in no acute distress. HEENT: Head is normocephalic, atraumatic. Pupils equal, round, reactive to light and accommodation. NECK: No JVD noted. No carotid bruits. No lymphadenopathy. No thyromegaly. CARDIOVASCULAR: S1, S2 heard. No murmurs, gallops, or rubs. Regular rate and rhythm. RESPIRATORY: Clear bilaterally to auscultation. No work of breathing or using accessory muscles. ABDOMEN: Soft, nontender to palpation. Bowel sounds present. No organomegaly. EXTREMITIES: No clubbing, cyanosis, or edema. Peripheral pulses present in both legs. NEUROLOGICAL: Patient alert and oriented x3. Moves 4 extremities. LABORATORY DATA: Reviewed. Glucose 283, with negative troponin. ASSESSMENT AND PLAN: 1. Chest pain. Patient has history of coronary artery disease. At this point, we are going to admit this patient to the hospital for observation. Check troponin's x3 and also check an echocardiogram. Patient has not been seen by green end man in at least 3 years. We are going to consult Cardiology. We are going to do a Lexiscan stress test tomorrow. We will go from there. 2. Diabetes mellitus type 2. We are going to check hemoglobin A1c. Will place this patient on sliding scale insulin. The patient, apparently, ran out of metformin for many weeks. At this point, we will continue with the same management. 3. Hypertension. As we mentioned before, apparently, patient because she is not seeing any primary care doctor, apparently, she ran out of some of her medications. Will start those here in the hospital. 4. Hypercholesterolemia. We will restart home medication. 5. Further recommendations to follow according to the clinical situation of the patient. cc: Valentino Fernandes MD
[2018-08-11] MEDS ORDERED: TYLENOL PO PRN (06:18)
[2018-08-11] MEDS ORDERED: NITROGLYCERIN SL PRN (06:18)
[2018-08-11] MEDS: MORPHINE IV PRN (06:45)
[2018-08-11] MEDS: LOVENOX SUBQ SCH (06:45)
[2018-08-11] MEDS: ZOFRAN IV PRN (06:46)
[2018-08-11] MEDS: PRILOSEC PO SCH ×2 (06:46→06:51)
[2018-08-11] MEDS ORDERED: HUMALOG SUBQ SCH (07:00)
--- NOTE | 2018-08-11 07:01 | EKG Report ---
Test Performed on : 08/10/2018 8:24:17 PM Test Reason : chest hernandez Blood Pressure : / mmHG Vent. Rate : 092 BPM Atrial Rate : 092 BPM P-R Int : 194 ms QRS Dur : 100 ms QT Int : 396 ms P-R-T Axes : 049 003 110 degrees QTc Int : 489 ms Normal sinus rhythm. Voltage criteria for left ventricular hypertrophy ST & T wave abnormality, consider lateral ischemia Abnormal ECG When compared with ECG of 20-JUL-2016 17:12, ST now depressed in Lateral leads T wave inversion now evident in Lateral leads QT has lengthened Unconfirmed Result
--- NOTE | 2018-08-11 07:26 | EKG Report ---
Test Performed on : 08/11/2018 06:02:45 AM Test Reason : chest pain Blood Pressure : / mmHG Vent. Rate : 066 BPM Atrial Rate : 066 BPM P-R Int : 212 ms QRS Dur : 106 ms QT Int : 446 ms P-R-T Axes : 024 010 105 degrees QTc Int : 467 ms Sinus rhythm. with 1st degree AV block. with premature atrial complexes. Left ventricular hypertrophy with repolarization abnormality Abnormal ECG When compared with ECG of 10-AUG-2018 20:24, (Unconfirmed) premature atrial complexes. are now present Confirmed by Braydon PEREZ, Antwan Yeh ([id number]) on 08/13/2018 4:38:19 PM
[2018-08-11 10:52] LABS: C REACTIVE PROT QUANT 3.16 mg/L (0.00-5.00); CHOLESTEROL 208 mg/dL (0-200); HDL 47 mg/dL (45-65); LDL 125 mg/dL; TRIGLYCERIDES 178 mg/dL (35-135); VLDL 36 mg/dL
[2018-08-11] MEDS ORDERED: LEXISCAN ONE (12:06)
[2018-08-11] MEDS ORDERED: AMINOPHYLLINE ONE (12:19)
[2018-08-11] MEDS: COREG PO SCH ×2 (13:55→20:23)
--- NOTE | 2018-08-11 13:55 | Diag Imaging Result Document ---
PROCEDURE NAME: MYOCARDIAL PERF SCAN, STR/REST - 08/11/2018 INDICATION: Chest pain. PROCEDURES PERFORMED: 1. Lexiscan stress. 2. One-day stress rest myocardial perfusion imaging. PROCEDURE IN DETAIL: Ms. Baldwin was brought to the nuclear laboratory and had a resting study with injection of 12.8 mCi of technetium-99m sestamibi with usual imaging protocol utilized. She subsequently was brought back and had a Lexiscan stress and at peak stress, was injected with 36.8 mCi of technetium-99m sestamibi with usual imaging protocol utilized. FINDINGS: LEXISCAN STRESS RESULTS: 1. Baseline EKG shows sinus rhythm, somewhat diffuse nonspecific ST-T changes. 2. Lexiscan stress did not demonstrate any clear evidence ischemic related EKG changes or significant arrhythmias during the course of the study. PERFUSION IMAGING RESULTS: 1. No evidence of abnormal extracardiac uptake. 2. TID ratio is 1.01. 3. Perfusion imaging shows a somewhat vague diffuse defect involving the midanterior, basal anterior, midlateral and basal lateral myers and appears to be largely fixed with only minor reversibility noted in the mid anterior wall. This could represent a small amount of local ischemia but could also represent shifting soft tissue attenuation. The amount of ischemia on this study appears to be a relatively small burden if that is indeed what is present. 4. There is a reduced ejection fraction on this study of 47% with an end- diastolic volume of 154 and systolic volume of 82. Minimal global hypokinesis is noted. cc: MD Valentino Waller MD MTDD
[2018-08-11] MEDS: PRINIVIL PO SCH ×2 (13:56→20:24)
[2018-08-11] MEDS: HUMALOG SUBQ SCH ×3 (13:56→20:27)
[2018-08-11] MEDS: EFFIENT PO SCH (15:17)
[2018-08-11] MEDS: HYDROCHLOROTHIAZIDE PO SCH (15:17)
[2018-08-11] MEDS: ADALAT CC PO SCH (15:18)
--- NOTE | 2018-08-11 15:23 | ECHO REPORT ---
ORDER DATE: 08/11/2018 INDICATION: Chest pain, history of coronary disease. FINDINGS: 1. The right atrium appears normal size. 2. No clear evidence of significant tricuspid regurgitation. Insufficient data to estimate RV systolic pressure. 3. Normal RV size and systolic function. 4. No significant pulmonic insufficiency. 5. Normal left atrial size with a dimension 3.7 cm. 6. No mitral prolapse. Trace mitral regurgitation. 7. Normal LV size, end-diastolic dimension of 4.9. Mild left ventricular hypertrophy with a posterior and interventricular septal wall thickness of 1.2 cm each. Normal LV systolic function. Estimated EF of 55%. No obvious wall motion abnormalities identified. 8. The aortic valve opens well. No evidence of stenosis or insufficiency. 9. The aorta appears normal in visualized segments. 10. No pericardial effusion seen. cc: MD Valentino Waller MD
--- NOTE | 2018-08-11 16:52 | CARDIOLOGY CONSULTATION ---
DATE: 08/11/2018 CONSULTATION REQUESTED BY: Hospitalist Service. REASON: Chest pain. HISTORY: Ms. Baldwin is a 58-year-old female patient of Dr. Kevin, presented to the hospital last night at about 8:30 p.m. with complaint of sudden onset of pain in the left anterior chest, sharp, intermittent, of moderate to significant severity, lasting up to 30 minutes. This happens in trains of multiple stabbing pains. This morning after admission to the hospital, she has had a couple of additional episodes. The patient has been coughing for about a week or so. Her chest x-ray on admission shows cardiomegaly with a faint nonspecific infiltrate or atelectasis of the right lower lobe. The patient denies having fever, hemoptysis, abdominal pain, nausea, or vomiting. PAST HISTORY: Positive for severe coronary heart disease several years ago. She has had stents. She suffered a myocardial infarction at that time. I did perform a right and left heart catheterization on her per request of Dr. Kaufman in July 2016. At that time, I found that her left main coronary artery and the circumflex system were normal. She had patent stents within the LAD and very mild plaque in the right coronary artery. She had a hyperdynamic left ventricle with ejection fraction of 75-80%. Her pulmonary pressures at that time were found to be, pulmonary arterial pressure was 33/5. The pulmonary capillary wedge was 13 mmHg. The mean pulmonary pressure was 11 mmHg. That indicates that she was not having pulmonary hypertension. Her LVEDP was normal. Since then, the patient has not followed with any doctor because she has no insurance. She has not been taking any medication. She was supposed to be on aspirin 81 daily, carvedilol 12.5 twice a day, lisinopril 40 twice a day, metformin 500 twice a day, Co-Q10. Her past history is also positive for hypertension, hyperlipidemia, diabetes. SURGICAL HISTORY: She had gallbladder taken out 2 years ago. She had C- section. SOCIAL HISTORY: She is . She has 5 children. She has applied for disability because she cannot work at this time. She has not smoked since before her heart attack. ALLERGIES: She is allergic to penicillin. MEDICATIONS: Currently, she is not taking any medicine. REVIEW OF SYSTEMS: She is basically limited by back discomfort. Aches and pains in the joints. She is overweight. No other positives. PHYSICAL EXAMINATION: Vital signs: Blood pressure is 153/85, temperature 97.7, pulse 70, respirations 18. She is awake, alert, oriented, in no distress. HEENT: Unremarkable. Chest: Clear to auscultation and percussion. Heart: Heart sounds regular and rhythmic. No gallop or murmur. Abdomen: Nontender. Extremities: Showed no edema. Neurologic: Nonfocal. Moves 4 extremities. LABORATORY: Sodium, potassium normal. BUN and creatinine normal. Troponin has been checked 3 times at 8:40 p.m., 2:32 a.m. and 7 a.m. today, all of them negative. Her EKG has been checked twice. They did one EKG at presentation at 8:24 p.m. that shows sinus rhythm, with a nonspecific ST abnormality in the lateral leads with LVH. Subsequent EKG shows the same pattern, LVH, no acute ST-segment elevation. Pro BNP is normal. PT, PTT normal. Hemoglobin, blood cell count, everything else normal. IMPRESSION: 1. Patient presenting with atypical chest pain. This appears to be recurrent. 2. Abnormal EKG. 3. Extreme medical noncompliance. The patient has not taken any medication for 6 months. This is really self neglect. 4. History of previous myocardial infarction and previous stents to LAD. 5. History of diabetes. 6. History of hyperlipidemia. 7. Hypertension. RECOMMENDATIONS: 1. The first thing that we need to do in this case is to put her back on all of her medicines. The second thing is we need to contact the social worker assistant and find out what is patient's family situation, because it is hard to believe that anybody who is and has 5 children, all grown up, cannot afford basic medicines to stay alive. 2. We will review the results of stress test and echocardiogram which has been requested by hospitalist service. Regardless of what we find on the tests, the 1st thing is that we need to put this patient back on all her medications. Thank you for asking us to participate in the evaluation. cc: MD EDDY Gaviria
[2018-08-11] MEDS: LIPITOR PO SCH (20:27)
[2018-08-12] MEDS: LOVENOX SUBQ SCH (06:10)
[2018-08-12] MEDS: HUMALOG SUBQ SCH ×4 (06:10→21:13)
[2018-08-12] MEDS: PRILOSEC PO SCH (06:11)
[2018-08-12] MEDS: MORPHINE IV PRN (06:17)
[2018-08-12 07:15] LABS: HEMATOCRIT 40.3 % (37.0-47.0); HEMOGLOBIN 14.2 g/dL (12.0-16.0); MCHC 35.2 g/dL (33-37); RBC 4.74 XMIL (4.2-5.4); RDW 13.1 % (11.5-14.5); WBC 7.87 X1000 (4.8-10.8)
[2018-08-12 07:40] LABS: AGAP 12; BUN 18 mg/dL (8-22); CALCIUM 9.2 mg/dL (8.8-10.2); CHLORIDE 98 mmol/L (98-107); COSMO 286; CREATININE 0.7 mg/dL (0.5-0.9); ESTIMATED GFR > 60; GLUCOSE 177 mg/dL (70-104); POTASSIUM 3.5 mmol/L (3.5-5.1); SODIUM 140 mmol/L (136-145); TCO2 30 mmol/L (25-35)
[2018-08-12] MEDS: ZOFRAN IV PRN (08:15)
[2018-08-12] MEDS: PRINIVIL PO SCH ×2 (09:58→21:12)
[2018-08-12] MEDS: ADALAT CC PO SCH (09:59)
[2018-08-12] MEDS: EFFIENT PO SCH (09:59)
[2018-08-12] MEDS: HYDROCHLOROTHIAZIDE PO SCH (09:59)
[2018-08-12] MEDS: LEVSIN-SL SL SCH ×3 (10:00→17:31)
[2018-08-12] MEDS: COREG PO SCH ×2 (10:00→21:12)
[2018-08-12] MEDS: ASPIRIN EC PO SCH (10:00)
[2018-08-12] MEDS: GLUCOPHAGE PO SCH ×2 (10:00→17:31)
--- NOTE | 2018-08-12 11:37 | PROGRESS NOTE ---
DATE: 08/12/2018 SUBJECTIVE: The patient states that she is still having intermittent chest pain. OBJECTIVE: Vital Signs: Temperature 97.8 degrees, blood pressure 142/62, heart rate 63, respirations 18, O2 saturation 99% on room air. General: This is an elderly female lying in bed in no acute distress. Heart: S1, S2 normal. Regular rate and rhythm. Lungs: Clear to auscultation bilaterally. No wheezes, no rales, no rhonchi. Abdomen: Positive bowel sounds. Soft, nontender, nondistended. Extremities: No edema, no cyanosis. Neurologic: The patient is alert and oriented x4. LABORATORY DATA: Reviewed. ASSESSMENT AND PLAN: 1. Chest pain. The patient had a stress test done yesterday that revealed a small amount of ischemia. We will continue with the current cardiac medications and await further recommendations from the spring inspector. 2. Diabetes mellitus type 2. Continue with sliding scale insulin. 3. Medication compliance. The patient has been counseled about the importance of taking her medications. 4. History of myocardial infarction with stents to the left anterior descending. Continue on the current cardiac medications. 5. Hyperlipidemia. The patient has been started on Lipitor. 6. Deep vein thrombosis prophylaxis. Continue on Lovenox. cc: Katelyn Santos MD
[2018-08-12] MEDS: LIPITOR PO SCH (21:12)
[2018-08-13] MEDS: PRILOSEC PO SCH (06:19)
[2018-08-13] MEDS: HUMALOG SUBQ SCH ×4 (06:20→21:43)
[2018-08-13] MEDS: LOVENOX SUBQ SCH (06:20)
[2018-08-13 07:41] LABS: HEMATOCRIT 41.4 % (37.0-47.0); HEMOGLOBIN 14.6 g/dL (12.0-16.0); MCH 30.2 PG (27-31); MCHC 35.3 g/dL (33-37); MCV 85.5 FL (81-99); MPV 10.2 FL (7.4-10.4); RBC 4.84 XMIL (4.2-5.4); WBC 9.09 X1000 (4.8-10.8)
[2018-08-13 08:03] LABS: AGAP 12; BUN 16 mg/dL (8-22); CALCIUM 9.6 mg/dL (8.8-10.2); CHLORIDE 97 mmol/L (98-107); COSMO 279; CREATININE 0.7 mg/dL (0.5-0.9); ESTIMATED GFR > 60; GLUCOSE 162 mg/dL (70-104); POTASSIUM 3.7 mmol/L (3.5-5.1); SODIUM 137 mmol/L (136-145); TCO2 28 mmol/L (25-35)
[2018-08-13] MEDS: EFFIENT PO SCH (09:42)
[2018-08-13] MEDS: HYDROCHLOROTHIAZIDE PO SCH (09:42)
[2018-08-13] MEDS: PRINIVIL PO SCH ×2 (09:42→21:42)
[2018-08-13] MEDS: GLUCOPHAGE PO SCH ×2 (09:42→16:41)
[2018-08-13] MEDS: LEVSIN-SL SL SCH ×3 (09:42→16:41)
[2018-08-13] MEDS: COREG PO SCH ×2 (09:42→21:42)
[2018-08-13] MEDS: ADALAT CC PO SCH (09:42)
[2018-08-13] MEDS: ASPIRIN EC PO SCH (09:42)
--- NOTE | 2018-08-13 13:28 | PROGRESS NOTE ---
DATE: 08/13/2018 SUBJECTIVE: The patient is sitting up in bed. She just got out of the shower. She denies having any chest pain. OBJECTIVE: Vital Signs: Temperature 97 degrees, blood pressure 143/74, heart rate 67, respirations 18, O2 saturation is 100% on room air. General: This is an elderly female, sitting at the edge of the bed in no acute distress. Heart: S1, S2 normal. Regular rate and rhythm. Lungs: Equal air entry bilaterally. No crackles. No rales. Abdomen: Positive bowel sounds. Soft, nontender, nondistended. Extremities: No edema. No cyanosis. Neurologic: The patient is alert and oriented x3. Labs: Reviewed. ASSESSMENT AND PLAN: 1. Chest pain. Continue on the current cardiac medications. The patient reports that she cannot afford her cardiac medications because she does not have health insurance. We will consult with director social welfare to assist with obtaining the medications. 2. Diabetes mellitus type 2. Continue on sliding scale insulin. 3. History of myocardial infarction. Aware. Continue with the current cardiac medications. 4. Hyperlipidemia. Continue on Lipitor. 5. Deep vein thrombosis prophylaxis. Continue on Lovenox. cc: Katelyn Santos MD
[2018-08-13] MEDS: LIPITOR PO SCH (21:42)
[2018-08-14] MEDS: LOVENOX SUBQ SCH (06:26)
[2018-08-14] MEDS: PRILOSEC PO SCH (06:26)
[2018-08-14] MEDS: HUMALOG SUBQ SCH ×2 (06:26→11:43)
[2018-08-14 07:08] LABS: HEMOGLOBIN 13.5 g/dL (12.0-16.0); MCH 30.1 PG (27-31); MCHC 35.5 g/dL (33-37); MCV 84.8 FL (81-99); MPV 10.1 FL (7.4-10.4); RBC 4.48 XMIL (4.2-5.4); RDW 12.8 % (11.5-14.5); WBC 7.57 X1000 (4.8-10.8)
[2018-08-14 07:35] LABS: AGAP 15; BUN 19 mg/dL (8-22); CALCIUM 9.1 mg/dL (8.8-10.2); CHLORIDE 96 mmol/L (98-107); COSMO 280; CREATININE 0.6 mg/dL (0.5-0.9); ESTIMATED GFR > 60; GLUCOSE 174 mg/dL (70-104); POTASSIUM 3.9 mmol/L (3.5-5.1); SODIUM 137 mmol/L (136-145); TCO2 26 mmol/L (25-35)
[2018-08-14] MEDS: LEVSIN-SL SL SCH ×2 (08:19→13:20)
[2018-08-14] MEDS: GLUCOPHAGE PO SCH (08:19)
[2018-08-14] MEDS: PRINIVIL PO SCH (08:19)
[2018-08-14] MEDS: ASPIRIN EC PO SCH (08:19)
[2018-08-14] MEDS: ADALAT CC PO SCH (08:19)
[2018-08-14] MEDS: HYDROCHLOROTHIAZIDE PO SCH (08:19)
[2018-08-14] MEDS: COREG PO SCH (08:19)
[2018-08-14] MEDS: EFFIENT PO SCH (08:19)
[2018-08-14 11:33] VITALS: BP 140/96
[2018-08-14] MEDS ORDERED: PNEUMOVAX 23 IM ONE (12:50)
== END 2018-08-14 13:30 | disposition home or self-care (01) | DRG 313 ==
LOC: ED 20:16 → SUATTDRO 08-11 01:42 → 3N 08-11 01:42
PROVIDERS: ATTEND Internal Medicine
CPT/HCPCS: 71020; 71046; 78452; 80048; 80053; 80061; 82550; 82948; 83036; 83880; 84484; 85025; 85027; 85610; 85651; 85730; 86140; 90732; 93005; 93010; 93017; 93306; 96374; 99285; A9270; A9500; C8929; J0280; J0820; J1650; J1815; J2270; J2405; J2785; Q9957; XXXXX